=== PATIENT | female | born 1975 | race Caucasian/White ===

== ENCOUNTER 2021-05-30 21:11 | Emergency (ER) | payer OTHER ==
[2021-05-31 01:31] LABS: HEMOGLOBIN 13.7 gm/dl (12.3-15.3); RED BLOOD COUNT 4.75 M/UL (4.00-5.10); WHITE BLOOD COUNT 8.1 K/UL (4.5-11.0)
[2021-05-31 01:58] LABS: BUN/CREATININE RATIO 18 (0-10)
== END 2021-05-31 04:13 | disposition home or self-care (01) ==
LOC: ER1 21:11
PROVIDERS: Nurse Practitioner
DX: R10.9 Unspecified abdominal pain (principal); E11.9 Type 2 diabetes mellitus without complications; I10 Essential (primary) hypertension; Z20.822 Contact with and (suspected) exposure to COVID-19
CPT/HCPCS: 0240U; 80053; 80076; 81001; 82150; 82272; 83690; 85025; 93005; 99284; Q9967